=== PATIENT | female | born 1970 | race Caucasian/White ===

== ENCOUNTER 2017-09-24 04:05 | Emergency (ER) | payer SELFPAY ==
[~2017-09-24] VITALS: Ht 162.6 cm; Wt 83.9 kg
[2017-09-24 04:08] VITALS: BP 132/87; PULSE 97; RESP 16; TEMP 97.3; O2SAT 98
[2017-09-24] MEDS ORDERED: TETANUS/DIPHTHERIA TOXOID ADULT 0.5 ML VIAL IM ONE (04:30)
--- NOTE | 2017-09-24 04:34 | PD ---
HPI Chief Complaint: Fall Time Seen by Provider: 04:13 Travel History International Travel<30 days: No Contact w/Intl Traveler<30days: No Traveled to known affect area: No History of Present Illness HPI The patient is a 46-year-old right-hand dominant female that fell at approximately 0230 this morning. She has an abrasion on her left knee but her main complaint is right wrist injury. She denies any loss of consciousness or syncopal or near syncopal spell. She states her last beer was around 2 in the morning. She denies any C-spine, T-spine or LS-spine pain. FOR[facility]LY [facility] Social History Tobacco Use: Yes Allergies-Medications (Allergen,Severity, Reaction): Coded Allergies: No Known Allergies (Unverified , 09/24/17) Reported Meds & Prescriptions Reported Meds & Active Scripts Active No Active Prescriptions or Reported Medications Review of Systems Except as stated in HPI: all other systems reviewed are Neg Physical Exam Narrative GENERAL: Well-nourished, well-developed patient in slight apparent distress with her right wrist discomfort. She does smell of beer but does not appear clinically intoxicated. Her vital signs show temperature 97.3, pulse 97 but otherwise normal. SKIN: Focused skin assessment warm/dry. There is a 2 cm abrasion on the left knee, no other skin rashes noted. HEAD: Normocephalic. EYES: No scleral icterus. No injection or drainage. NECK: Supple, trachea midline. No JVD or lymphadenopathy. CARDIOVASCULAR: Regular rate and rhythm without murmurs, gallops, or rubs. RESPIRATORY: Breath sounds equal bilaterally. No accessory muscle use. GASTROINTESTINAL: Abdomen soft, non-tender, nondistended. MUSCULOSKELETAL: No cyanosis, or edema. There is an obvious bony deformity of the right wrist indicating fracture. No such deformity is present on either knee and ligaments on both knees are intact. The right finger show good pinprick and capillary refill. BACK: Nontender without obvious deformity. No CVA tenderness. Data Data Last Documented VS Vital Signs Date Time Temp Pulse Resp B/P (MAP) Pulse Ox O2 Delivery O2 Flow Rate FiO2 09/24/17 04:08 97.3 97 16 132/87 (102) 98 Orders Orders Wrist, Complete ([id number]) (09/24/17 04:21) Wound Care (09/24/17 04:22) Tetanus/Diphtheria Tox Adult (Tetanus/Di (09/24/17 04:30) MDM Medical Decision Making Medical Screen Exam Complete: Yes Emergency Medical Condition: Yes Medical Record Reviewed: Yes Interpretation(s) X-rays of the right wrist show a dorsally angulated slightly comminuted fracture of the distal radius. Differential Diagnosis Fracture wrist, sprain rest, abrasion knee, fractured knee-highly unlikely Narrative Course The patient has a fractured distal radius. She will get a sugar tong splint, sling and follow-up with orthopedics. Dr. Rick is on [employer]. Diagnosis Primary Impression: Fracture of right distal radius Additional Instructions: Elevated the wrist above your heart as much as possible. Do not drink alcohol or drive on the Percocet 5. Call Dr. Rick tomorrow to set up an appointment. Med/Other Pt SpecificInfo: Prescription(s) given Scripts Oxycodone-Acetaminophen (Percocet) 5-325 mg Tab 1-2 TAB PO Q6H Y for PAIN, #30 TAB 0 Refills Prov: Omar Umanzor MD 09/24/17 Disposition: 01 DISCHARGE HOME Condition: Stable Omar Umanzor MD Sep 24, 2017 04:34
[2017-09-24] MEDS ORDERED: PERC5TAB12 PO (04:57)
--- NOTE | 2017-09-24 05:11 | RADRPT ---
EXAM DATE/TIME: 09/24/2017 04:35 [facility] COMPARISON: No previous studies available for comparison. INDICATIONS : Right wrist pain. MEDICAL HISTORY : None. SURGICAL HISTORY : None. ENCOUNTER: Initial ACUITY: 1 day PAIN SCORE: 8/10 LOCATION: Right wrist FINDINGS: There is a mildly comminuted transverse fracture of the radial metaphysis with mild dorsal angulation of the distal fragment. The ulnar styloid is intact. The carpus is in normal alignment. No radiop aque foreign bodies. CONCLUSION: Comminuted Colles' fracture. Pepe Mcfarland MD on September 24, 2017 at 5:09 Board Certified Radiologist. This report was verified electronically.
[2017-09-24] MEDS ORDERED: oxyCODONE/ACETAMINOPHEN 7.5 MG/325 MG TAB PO ONE (05:15)
== END 2017-09-24 06:02 | disposition home or self-care (01) ==
LOC: PHED 04:05
DX: S52.501A Unspecified fracture of the lower end of right radius, initial encounter for closed fracture (principal)
CPT/HCPCS: 29125; 73110; 90471; 90714; 96372

== ENCOUNTER 2017-09-27 12:07 | Day surgery (SDC) | payer OTHER ==
[~2017-09-27] VITALS: Ht 162.6 cm; Wt 80.6 kg
[~2017-09-27 12:07] MED LIST: PERC5TAB12 PO
[2017-09-27] MEDS ORDERED: CHLORHEXIDINE GLUCONATE 2 % 1 PACK (2 CLOTHS) TOPICAL PRN (13:15)
[2017-09-27] MEDS ORDERED: LACTATED RINGER'S 1000 ML IV PRN (13:15)
[2017-09-27] MEDS ORDERED: POVIDONE IODINE 5% (ANTISEPSIS KIT) 4 APPLICATIONS EACH NARE PRN (13:15)
[2017-09-27] MEDS ORDERED: METOPROLOL TARTRATE 25 MG TAB PO PRN (13:15)
[2017-09-27] MEDS ORDERED: SODIUM CHLORID 0.9% 500 ML IV PRN (13:15)
[2017-09-27] MEDS ORDERED: VANCOMYCIN 1000 MG/NS 250 ML (for <70 kg) IV SCH ×2 (13:30)
[2017-09-27] MEDS ORDERED: ceFAZolin 2 GM PREMIX 50 ML IV SCH (13:30)
[2017-09-27] MEDS ORDERED: CHLORHEXIDINE GLUCONATE 4% SOLN 120 ML BTL TOPICAL SCH (13:30)
[2017-09-27] MEDS ORDERED: ACETAMINOPHEN 1000 MG/100 ML 100 ML IV ONE (15:21)
[2017-09-27] MEDS ORDERED: GENTAMICIN SULFATE 80 MG/2 ML VIAL ONE (15:57)
[2017-09-27] MEDS ORDERED: PERC5TAB12 PO ×2 (16:28→18:12)
[2017-09-27] MEDS ORDERED: ONDANSETRON HCL 4 MG/2 ML VIAL IV PUSH PRN (16:30)
[2017-09-27] MEDS ORDERED: oxyCODONE/ACETAMINOPHEN 5 MG/325 MG TAB PO PRN (16:30)
[2017-09-27] MEDS ORDERED: SODIUM CHLORIDE 0.9% FLUSH 10 ML FLUSH IV FLUSH PRN (16:30)
--- NOTE | 2017-09-27 17:31 | PD.OP ---
cc: Jose Juan Curtis Jr., MD Operative Report Date of Surgery: Sep 27, 2017 Preoperative Diagnosis: Right distal radius fracture, extra-articular Postoperative Diagnosis: Same Procedure: Open reduction internal fixation right distal radius Anesthesia: Gen. Surgeon: Jose Juan Curtis Wedding Planning Internship(s): Hospital staff Resident Surgeon: None Operation and Findings: Patient was seen and evaluated preoperatively and found to have a extra articular RIGHT displaced distal radius fracture. Informed consent was obtained after detailed discussion of risk and benefits including bleeding, infection, injury to arteries, nerves, and blood vessels, weakness and numbness of hand, and tendon rupture. Informed consent was obtained. Patient received IV antibiotics prior to incision. Timeout procedure was performed. Operative extremity was prepped with alcohol followed by Hibiclens and draped usual sterile fashion. A standard volar approach to the distal radius was utilized. A 3 inch incision was made over the FCR tendon. Tendon sheath was opened. Pronator quadratus was elevated up. The fracture site was now visualized. The fracture did [] have intra-articular extension. Traction was applied. The articular surface was reduced. Fracture fragments were manipulated to achieve excellent reduction. K wires were used to hold provisional fixation. Fluoroscopy confirmed appropriate alignment of fracture. A Synthes 2 column variable angle distal radius plate was selected. Plate was provisionally fixed to bone with K wires. 2.7 cortical screws were used to compress plate to bone. Fluoroscopy confirmed appropriate alignment of fracture with well-placed hardware. Multiple 2.4 locking screws were now placed distally. Screws were predrilled and measured for appropriate length. 1 additional screws were placed into the shaft. K wires were removed. Final fluoroscopy revealed excellent of fracture with well-placed hardware. The wound was thoroughly irrigated with sterile saline. Subcutaneous tissue was closed with 3-0 Vicryl and skin was closed with 3-0 nylon. Sterile dressings were applied with Xeroform, 4 x 4, soft roll , and a well padded volar splint. Patient was awakened and transferred to recovery room in stable condition IMPLANTS USED Synthes 2 column variable angle distal radius plate. POSTP-OP PLAN OF ACTIVITY Antibiotics Weight bearing status:NWB Dressing: none Dispo: expected discharge from [facility] today Jose Juan Curtis Jr., MD Sep 27, 2017 17:31
[2017-09-27] MEDS ORDERED: DO NOT ADM ANY ANTICOAGULANT DRUGS PRN (17:47)
--- NOTE | 2017-09-27 17:49 | RADRPT ---
EXAM DATE/TIME: 09/27/2017 16:51 [facility] COMPARISON: No previous studies available for comparison. INDICATIONS : Right wrist open reduction internal fixation. MEDICAL HISTORY : None. SURGICAL HISTORY : None. ENCOUNTER: Initial ACUITY: 1 day PAIN SCORE: Non-responsive. LOCATION: Right wrist FINDINGS: Fracture of a distal right radial metaphysis has been openly reduced and fixated with an extra medull winter plate. Fracture fragments are satisfactory aligned. Radiocarpal joint appears anatomic. CONCLUSION: Satisfactory appearance of the distal right radius following ORIF. Elmo Mejia MD on September 27, 2017 at 17:46 Board Certified Radiologist. This report was verified electronically.
[2017-09-27] MEDS ORDERED: MORPHINE SULFATE 2 MG/ML INJ IV PRN (18:00)
[2017-09-27] MEDS ORDERED: MORPHINE SULFATE 4 MG/ML INJ ONE (18:03)
[2017-09-27 18:45] VITALS: TEMP 98.2
[2017-09-27 19:00] VITALS: BP 138/79; PULSE 78; RESP 14; O2SAT 96
[2017-09-27] MEDS ORDERED: SODIUM CHLORIDE 0.9% FLUSH 10 ML FLUSH IV FLUSH SCH (21:00)
== END 2017-09-27 19:21 | disposition home or self-care (01) ==
LOC: HSDC 12:07
PROVIDERS: ATTEND Orthopaedic Surgery
DX: S52.501A Unspecified fracture of the lower end of right radius, initial encounter for closed fracture (principal)
CPT/HCPCS: 01830; 25607; 73100; 76000; 86850; 86900; 86901; C1713; J0131; J1580; J2270; J3370; J7050; J7120